=== PATIENT | female | born 1940 | race Caucasian/White ===

== ENCOUNTER 2021-02-01 08:40 | Outpatient (CLI) | payer MEDICARE, OTHER, SELFPAY ==
--- NOTE | ~2021-02-01 | MR_ITS ---
EXAMINATION: MR brain/brain stem wo con EXAM DATE: 02/01/2021 11:27 INDICATION: Seizure disorder, cervical disc disorder with myelopathy. TECHNIQUE: Magnetic resonance imaging (MRI) of the brain/brain stem obtained without contrast. Sagitt al T1, axial diffusion, gradient echo (T2*), T1, T2, FLAIR sequences obtained. Comparison is made to prior examination from 08/02/2014. FINDINGS: There are no areas of restricted diffusion to suggest acute infarction. There is no acute hemorrhage seen on the T2*, a hemosiderin sensitive sequence. No intraparenchymal brain mass lesion. There is moderate to severe periventricular and subcortical T2/FLAIR signal hyperintensity, nonspeci fic but probably related to small vessel ischemic disease (microangiopathy). There is moderate prom inence of the sulci and ventricles related to cerebral atrophy. There are no extra-axial collection s. Flow voids are seen in the cerebral arteries on the T2-weighted sequences consistent with their e xpected patency. Patient has had bilateral ocular lens surgery. Soft tissue is unremarkable. IMPRESSION: 1. No acute intracranial findings. 2. Chronic age related findings. Reviewed, dictated and finalized at location A.
--- NOTE | ~2021-02-01 | MR_ITS ---
EXAMINATION: MR cervical spine wo con EXAM DATE: 02/01/2021 11:27 INDICATION: Cervical disc disorder, myelopathy. TECHNIQUE: Multi-sequential, multiplanar MR images of the cervical spine were obtained without contra st. Axial T2, axial T2 MERGE sequence. Sagittal T1, T2, T2 fat saturation images also obtained. Th ere is no prior study for comparison. FINDINGS: There is cervical fusion C3-C6. There is C4 corpectomy. Congenitally narrow C2-3 disc spac e. 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 There is moderate disc disease at T3-4. The spinal cord signal intensity and intrinsic morphology is normal. Cervicomedullary junction is no rmal in appearance. Paraspinal soft tissue is unremarkable. Level by level evaluation: C2-C3: Congenitally partially fused. Uncovertebral joint arthropathy: None. Facet joint arthropathy: Fused. Neural foraminal stenosis: No stenosis. Central canal stenosis: No stenosis. C3-C4: This level is fused. Uncovertebral joint arthropathy: Mild bilateral. Facet joint arthropathy: Mild to moderate. Neural foraminal stenosis: No stenosis. Central canal stenosis: No stenosis. C4-C5: This level is fused. Uncovertebral joint arthropathy: Mild. Facet joint arthropathy: Mild to moderate left, mild right. Neural foraminal stenosis: No stenosis. Central canal stenosis: No stenosis. C5-C6: This level is fused. Uncovertebral joint arthropathy: Mild to moderate left, mild right. Facet joint arthropathy: Moderate to severe left, moderate right. Neural foraminal stenosis: No stenosis. Central canal stenosis: No stenosis. C6-C7: There is a minimal diffuse disc bulge. Uncovertebral joint arthropathy: Mild to moderate left, mild right. Facet joint arthropathy: Moderate left, mild right. Neural foraminal stenosis: Mild bilateral. Central canal stenosis: No stenosis. C7-T1: There is a mild diffuse disc bulge. Uncovertebral joint arthropathy: None. Facet joint arthropathy: Moderate left, mild right. Neural foraminal stenosis: Mild to moderate right. Central canal stenosis: No stenosis. IMPRESSION: 1. Surgical changes C3-6. 2. Moderate spondylosis. No central canal stenosis. Reviewed, dictated and finalized at location A.
--- NOTE | 2021-02-01 10:26 | WPDNEUROLOGY ---
Neurology EEG Report General Information Date of Study: 02/01/21 TEST eeg DIAGNOSIS memory loss CONDITION OF RECORDING awake ,drowsy and sleep EEG NUMBER [id number] CLINICAL HISTORY Patient does not know why she is having this particular test or why she sees the neurologist Her daughter takes care of all that. EEG DESCRIPTION Basic resting occipital frequency consists of medium voltage 8 to 9 hertz per second alpha admixed with minimal amount of very low-voltage 15 to 18 hertz per second beta. During drowsiness low-voltage beta activity seen diffusely admixed with waxing and waning posterior alpha rhythm .bihemispheric medium voltage 5 to 7 hertz per second theta is seen intermittently admixed with 2 to 3 hertz per second medium voltage delta activity. Non paroxysmal, nonfocal ,nonlateralizing. IMPRESSION Abnormal record due to the presence of bihemispheric theta and delta activity with no evidence of paroxysmal discharge. These abnormalities are consistent with diagnosis of organic or metabolic encephalopathy or else neuro degenerative process .
== END 2021-02-01 08:41 | disposition home or self-care (01) ==
PROVIDERS: PCP Family Medicine; Visit Provider Psychiatry & Neurology Neurology
DX: R56.9 Unspecified convulsions (principal); M50.01 Cervical disc disorder with myelopathy, high cervical region; M47.892 Other spondylosis, cervical region; R94.01 Abnormal electroencephalogram [EEG]
CPT/HCPCS: 70551; 72141; 95816

== ENCOUNTER 2022-11-01 08:40 | Emergency (ER) | payer MEDICARE, SELFPAY ==
[2022-11-01] VITALS (13 sets, daily range): BP systolic 129–145; BP diastolic 72–88; PULSE 77–98; RESP 12–28; TEMP 36.4; O2SAT 94–99
--- NOTE | ~2022-11-01 | CT_ITS ---
Noncontrast CT scan of the cervical spine Technique: Multiple contiguous axial [address] images of the cervical spine were obtained and rec onstructed in 2D sagittal and coronal planes on the acquisition scanner. Dose reduction technique was used on this scan by utilizing automated exposure control, adjustment of the mA and/or kV according to patient size. Clinical History: Pain Findings: No acute fracture identified. There is anterior fusion from C3 through C6, probable C4 erik ectomy. There is marked narrowing of the C2-C3 disc space. There are mild facet joint degenerative ch anges in the cervical spine, most pronounced in the left side at C5-C6. No definite spinal canal sten osis. No prevertebral soft tissue swelling. Impression: No fracture or subluxation of the cervical spine. Postoperative changes from C3 through C6, as detailed above. Mild degenerative changes, as detailed above. Reviewed, dictated and finalized at [facility]. 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 Postoperative changes from C3 through C6, as detailed above. Mild degenerative changes, as detailed above.
--- NOTE | ~2022-11-01 | CT_ITS ---
CT head without contrast Indication: Status post fall COMPARISON: 08/01/2014 Technique: Serial scans were obtained through the brain without the administration of contrast. Dose reduction technique was used on this scan by utilizing automated exposure control and iterative recon struction technique. The dose-length product (DLP) was 605.33 mGy-cm. Findings: There is no evidence of intracranial hemorrhage, mass lesion, or acute infarct. Chronic lac unar infarct noted in the right basal ganglia. Chronic left frontal lobe infarct noted. The ventricle s and subarachnoid spaces are dilated, consistent with mild atrophy. Low attenuation regions are see n within the periventricular white matter bilaterally, likely representing changes from chronic micro vascular ischemic disease. There is no evidence of edema, mass effect or midline shift. The visuali zed paranasal sinuses and mastoid air cells are clear. Impression: No intracranial hemorrhage, mass, or acute infarct. Chronic infarcts, as detailed above. Atrophy and chronic white matter changes, as above. Reviewed, dictated and finalized at location . 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 Chronic infarcts, as detailed above. Atrophy and chronic white matter changes, as above.
--- NOTE | 2022-11-01 09:09 | ECG_ITS ---
Measurements Intervals [place] Rate: 83 P: 51 [place]: 169 QRS: -62 QRSD: 153 T: 10 QT: 408 QTc: 480 Interpretive Statements SINUS RHYTHM POSSIBLE LEFT ATRIAL ENLARGEMENT [-0.1mV P-WAVE IN V1/V2] RIGHT BUNDLE BRANCH BLOCK [120+ ms QRS DURATION, UPRIGHT V1, 40+ ms S IN I/aVL/V4/V5/V6] LEFT ANTERIOR FASCICULAR BLOCK [QRS AXIS <= -45, QR IN I, RS IN II] POSSIBLE LEFT VENTRICULAR HYPERTROPHY [VOLTAGE CRITERIA PLUS LAE OR QRS WIDENING] POSSIBLE SEPTAL MYOCARDIAL INFARCTION , PROBABLY OLD [30 ms Q WAVE IN V1/V2] NO PREVIOUS ECG AVAILABLE FOR COMPARISON Electronically Signed On 11-01-2022 13:22:41 ELECTROENCEPHALOGRAPHIC TECHNICIAN by Arturo Drew M.D.
--- NOTE | 2022-11-01 09:09 | ED.HEATRA ---
HPI - Head Injury General Chief complaint: Head Injury Stated complaint: fall - head injury Time Seen by Provider: 11/01/22 08:53 Source: patient and family Mode of arrival: ambulatory Limitations: no limitations History of Present Illness HPI Narrative: Patient is an 82 y/o female who presents to the ED with c/o a fall with head injury. Patient reports she was leaning over to put on her shoes this morning when she fell forward. Family member at bedside reports patient hit her head against the corner of the dresser. Patient sustained a large scalp laceration to her left forehead. Denied LOC. She is not on any blood thinners. Tetanus status unknown. Patient denied feeling prodromal symptoms prior to the fall occurring. She does complain of mild dizziness and headache currently. Denies vision changes, nausea, vomiting, chest pain, difficulty breathing, back pain, neck pain. Patient lives with family and attends an adult daycare during the day. Related Data Allergies Allergy/AdvReac Type Severity Reaction Status Date / Time pentazocine Allergy Unknown Unknown Verified 11/01/22 12:08 PENTAZOCINE LACTATE Allergy Mild Unknown Uncoded 11/01/22 12:08 Review of Systems Review of Systems: CONSTITUTIONAL: Denies fever, chills, or sweats. EYES: Denies visual changes. CARDIOVASCULAR: Denies chest pain. RESPIRATORY: Denies dyspnea. GASTROINTESTINAL: Denies abdominal pain, nausea, vomiting. SKIN: Reports Laceration to left forehead. MUSCULOSKELETAL: Denies back pain, neck pain. NEUROLOGIC: Reports head injury, headache, dizziness. Denies LOC, numbness, or weakness. All systems reviewed & are unremarkable except as noted in HPI and below PMFSH Past Medical History Medical History (Updated 11/01/22 @ 11:33 by Cecilia Caldwell PA-C) Dementia GERD (gastroesophageal reflux disease) Hyperlipidemia Surgical History Surgical History (Updated 11/01/22 @ 09:24 by Cecilia Caldwell PA-C) No pertinent past surgical history Family History Family History (Updated 12/22/15 @ 09:22 by DOCTOR UNKNOWN) Father Family history of heart disease in male family member before age 55 Acute myocardial infarction Sibling Family history of heart disease in male family member before age 55 Social History Social History (Updated 11/01/22 @ 09:24 by Cecilia Caldwell PA-C) Alcohol intake: never Living arrangements: with family Exam Narrative: GENERAL: Well appearing, well-nourished, non-toxic, in no acute distress. HEAD: Normocephalic. Large L shaped flap scalp laceration to L upper lateral forehead. Bleeding controlled. EYES: PERRLA/EOMI. Conjunctiva clear. No pain with eye movements. ENT: MMs slightly dry. NECK: Supple. No adenopathy, no masses. No significant midline spinal tenderness. RESPIRATORY: Airway patent, respirations nonlabored. Clear to auscultation bilaterally, no rales, rhonchi, wheezing. CARDIOVASCULAR: Regular rate and rhythm without murmurs, rubs, or gallops. Peripheral pulses 2+ and equal bilaterally. ABDOMINAL: Soft, nontender, nondistended, no hepatosplenomegaly. Normoactive BS. MUSCULOSKELETAL: Moves all extremities. Strength/ROM intact without gross deformities. SKIN: Warm, dry, normal color. No rashes. NEURO: Alert. Speech clear. Cranial nerves II-XII grossly intact. Steady gait. No ataxic movements. Moves all extremities. Equal entry specialist strength bilaterally. No focal deficits. PSYCHIATRIC: Appropriate mood and affect. Normal interaction. Course Vital Signs Vital signs: Vital Signs Pulse Oximetry 95 11/01/22 08:48 Temperature 97.5 F L 11/01/22 08:52 Pulse Rate 89 11/01/22 12:08 Respiratory Rate 16 11/01/22 12:08 Blood Pressure 129/84 11/01/22 12:08 Pulse Oximetry 99 11/01/22 12:08 Procedures Laceration Laceration 1: Date: 11/01/22 Time: 11:00 Site: scalp and face (L forehead into scalp) Side (If applicable): left Size (cm): 10
[2022-11-01 09:51] LABS: Basophils Percent Auto 0.4 % (0.2-1.2); Eosinophils Percent Auto 0.4 % (0-4.4); Hemoglobin 12.8 g/dL (12.0-15.0); Immature Granulocyte Absolute 0.02 K/mm3 (0.00-0.031); Immature Granulocyte Percent A 0.3 % (0-0.5); Lymphocytes Absolute Auto 1.07 K/mm3 (0.9-3.2); Lymphocytes Percent Auto 14.9 % (18.3-44.2); Mean Corpuscular HGB Conc 32.8 g/dl (32-36); Mean Corpuscular Hemoglobin 29.2 pg (26-34); Mean Corpuscular Volume 88.8 fl (80-100); Mean Platelet Volume 10.6 fl (7.4-10.4); Monocytes Absolute Auto 0.7 K/mm3 (0.1-0.6); Monocytes Percent Auto 9.2 % (2.6-8.5); Neutrophils Absolute Auto 5.4 K/mm3 (1.3-6.7); Neutrophils Percent Auto 74.8 % (45.5-73.1); Platelet Count Result 175 k/mm3 (150-375); Red Blood Count 4.39 M/mm3 (4.2-5.4); Red Cell Distribution Width 13.2 % (11.5-14.5); White Blood Count 7.2 K/mm3 (4.5-10.0)
[2022-11-01 10:00] LABS: Alanine Aminotransferase 16 U/L (6-35); Albumin Level 3.5 g/dL (3.5-5.1); Alkaline Phosphatase 89 U/L (38-126); Anion Gap 5 mmol/L (8-16); Aspartate Amino Transferase 22 U/L (14-36); Bilirubin,Total 0.4 mg/dL (0.2-1.3); Blood Urea Nitrogen 13 mg/dL (7-17); Calcium 8.3 mg/dL (8.4-10.2); Carbon Dioxide 26 mmol/L (22-30); Chloride 101 mmol/L (98-107); Estimated CRCL calculation 48 ml/min; Estimated Glomerular Filt Rate > 60; Glucose 146 mg/dL (65-110); Potassium 3.7 mmol/L (3.4-5.0); Sodium 132 mmol/L (137-145)
[2022-11-01] MEDS: SODIUM CHLORIDE 0.9% IV 1,000 ML 999 ML IV CONT (10:22)
[2022-11-01] MEDS: TETANUS,DIPHTHERIA,AC PERTUSSIS ADULT (0.5 ML) BOOSTRIX IM (10:25)
[2022-11-01] MEDS: LIDOCAINE HCL 1% PF 30 ML VIAL 5 ML INFILTRATE (10:45)
--- NOTE | 2022-11-01 11:09 | PC.NURSE ---
Patient report given to TERRI Patel. All questions answered and care of patient transferred.
[2022-11-01] MEDS: MECLIZINE HCL 25 MG TABLET PO (12:08)
== END 2022-11-01 12:36 | disposition home or self-care (01) ==
PROVIDERS: Emergency Provider Physician Assistant; PCP Physician Assistant
DX: S01.01XA Laceration without foreign body of scalp, initial encounter (principal); Z23 Encounter for immunization; F03.90 Unspecified dementia, unspecified severity, without behavioral disturbance, psychotic disturbance, mood disturbance, and anxiety; E78.5 Hyperlipidemia, unspecified; K21.9 Gastro-esophageal reflux disease without esophagitis; W01.190A Fall on same level from slipping, tripping and stumbling with subsequent striking against furniture, initial encounter
CPT/HCPCS: 12004; 36415; 70450; 72125; 80053; 85025; 90471; 90715; 93005; 96360; 99284; A9270; J7030

== ENCOUNTER 2022-11-26 14:52 | Emergency (ER) | payer MEDICARE, SELFPAY ==
[2022-11-26 14:59] VITALS: BP 152/90; PULSE 102; RESP 15; TEMP 36.6; O2SAT 96
--- NOTE | 2022-11-26 15:08 | ECG_ITS ---
Measurements Intervals [place] Rate: 86 P: 75 [place]: 177 QRS: -58 QRSD: 133 T: 50 QT: 397 QTc: 477 Interpretive Statements SINUS RHYTHM VENTRICULAR PREMATURE COMPLEXES POSSIBLE LEFT ATRIAL ENLARGEMENT RIGHT BUNDLE BRANCH BLOCK LEFT ANTERIOR FASCICULAR BLOCK CANNOT RULE OUT SEPTAL INFARCT, AGE INDETERMINATE BASELINE ARTIFACT- I, II, AVR, V4-V6 ABNORMAL ECG COMPARED TO ECG 11/01/2022 09:14:35 NO SIGNIFICANT CHANGES Electronically Signed On 11-26-2022 15:46:16 FORENSIC CHEMIST by Ruddy Wilson D.O.
[2022-11-26 15:38] LABS: Basophils Absolute Auto 0.1 K/mm3 (0.0-0.1); Basophils Percent Auto 0.7 % (0.2-1.2); Eosinophils Percent Auto 0.4 % (0-4.4); Hematocrit 44.7 % (37.0-47.0); Hemoglobin 14.4 g/dL (12.0-15.0); Immature Granulocyte Absolute 0.02 K/mm3 (0.00-0.031); Immature Granulocyte Percent A 0.3 % (0-0.5); Lymphocytes Percent Auto 25.9 % (18.3-44.2); Mean Corpuscular HGB Conc 32.2 g/dl (32-36); Mean Corpuscular Hemoglobin 29.4 pg (26-34); Mean Corpuscular Volume 91.2 fl (80-100); Monocytes Absolute Auto 0.4 K/mm3 (0.1-0.6); Monocytes Percent Auto 6.2 % (2.6-8.5); Neutrophils Absolute Auto 4.6 K/mm3 (1.3-6.7); Neutrophils Percent Auto 66.5 % (45.5-73.1); Platelet Count Result 215 k/mm3 (150-375); Red Cell Distribution Width 13.4 % (11.5-14.5)
[2022-11-26 15:56] LABS: Alanine Aminotransferase 18 U/L (6-35); Albumin Level 3.8 g/dL (3.5-5.1); Alkaline Phosphatase 99 U/L (38-126); Anion Gap 7 mmol/L (8-16); Aspartate Amino Transferase 25 U/L (14-36); Bilirubin,Total 0.7 mg/dL (0.2-1.3); Blood Urea Nitrogen 20 mg/dL (7-17); Calcium 9.1 mg/dL (8.4-10.2); Carbon Dioxide 26 mmol/L (22-30); Chloride 107 mmol/L (98-107); Estimated CRCL calculation 38 ml/min; Estimated Glomerular Filt Rate 60; Glucose 139 mg/dL (65-110); Potassium 4.5 mmol/L (3.4-5.0); Sodium 140 mmol/L (137-145)
[2022-11-26 17:39] LABS: Appearance Urine Slightly Cloudy (Clear); Bilirubin Urine Negative (Negative); Blood Urine Trace-lysed (Negative); Color Urine Yellow (Yellow); Glucose Urine UA Negative (Negative); Ketones Urine Negative (Negative); Leukocyte Esterase Ur 3+ LEU/UL (Negative); Nitrate Urine Positive (Negative); Protein Urine Negative (Negative); Urobilinogen Urine 0.2 mg/dL (<2.0); pH Urine 5.5 (5.0-9.0)
[2022-11-26 17:47] LABS: Bacteria Urine 2+ /hpf; Mucus Urine Rare /lpf; Squamous Epithelial Cell Urine Rare /hpf (Few); WBC Urine >75 /hpf
[2022-11-26 17:48] LABS: Add Urine Microscopic? YES
[2022-11-26 18:24] VITALS: BP 159/75; PULSE 91; RESP 18; TEMP 36.7; O2SAT 98
[2022-11-26 18:25] VITALS: PULSE 90
[2022-11-26 19:47] VITALS: BP 139/78; PULSE 80; RESP 26; O2SAT 95
--- NOTE | 2022-11-26 20:02 | ED.WEAKNESS ---
HPI - Weakness General Chief complaint: Weakness Stated complaint: I don't feel good Time Seen by Provider: 11/26/22 18:31 History of Present Illness HPI Narrative: Patient is an 82-year-old female with a history of dementia presenting with general malaise. Patient states that for the last day she has just felt generally unwell. States that she felt nauseated earlier. Patient lives with her family and started complaining that she did not feel well today so they brought her in for evaluation. Patient denies any focal pain. No chest pain, headache, abdominal pain. No shortness of breath, cough, nasal congestion, vomiting, diarrhea, dysuria, hematuria, leg swelling. Related Data Allergies Allergy/AdvReac Type Severity Reaction Status Date / Time pentazocine Allergy Unknown Unknown Verified 11/26/22 18:26 PENTAZOCINE LACTATE Allergy Mild Unknown Uncoded 11/26/22 18:26 Review of Systems Review of Systems: All systems reviewed & are unremarkable except as noted in HPI and below PMFSH Past Medical History Medical History Dementia GERD (gastroesophageal reflux disease) Hyperlipidemia Surgical History Surgical History No pertinent past surgical history Family History Family History Father Family history of heart disease in male family member before age 55 Acute myocardial infarction Sibling Family history of heart disease in male family member before age 55 Social History Social History Alcohol intake: never Living arrangements: with family Exam Narrative: GENERAL: Well-appearing, well-nourished, and in no acute distress. HEAD: Normocephalic, atraumatic. EYES: PERRLA and EOMI. ENT: Nares clear, no rhinorrhea or epistaxis. Mucous membranes moist. NECK: Supple. CHEST: Clear to auscultation. No respiratory distress. HEART: Regular rate and rhythm. No murmur heard. Normal peripheral pulses. ABDOMEN: Soft, nontender, nondistended EXTREMITIES: Normal range of motion. No edema. SKIN: Warm, dry, no rash. NEURO: No focal deficits. Alert and oriented x2. PSYCH: Normal mood and affect. Course Vital Signs Vital signs: Vital Signs Temperature 97.9 F 11/26/22 14:59 Pulse Rate 102 H 11/26/22 14:59 Respiratory Rate 15 11/26/22 14:59 Blood Pressure 152/90 H 11/26/22 14:59 Pulse Oximetry 96 11/26/22 14:59 Oxygen Delivery Room Air 11/26/22 14:59 Temperature 98.0 F 11/26/22 18:24 Pulse Rate 80 11/26/22 19:47 Respiratory Rate 26 H 11/26/22 19:47 Blood Pressure 139/78 11/26/22 19:47 Pulse Oximetry 95 11/26/22 19:47 Oxygen Delivery Room Air 11/26/22 18:24 MDM - Weakness MDM Narrative Medical decision making narrative: Patient is an 82-year-old female presenting with general malaise. Patient is initially tachycardic, this has improved by the time I evaluated her. Exam is remarkable for the above. Work-up is remarkable for UTI. Blood work is normal. No leukocytosis. Normal renal function. Patient given a dose of Rocephin and some fluids. We will send in a prescription for Keflex. Advised PCP follow-up. Appropriate return precautions given. Discharged in stable condition. Differential Diagnosis Differential diagnosis: Likely sepsis, dehydration and other (UTI, pneumonia, URI) Lab Data 11/26/22 15:23 11/26/22 15:23 Labs: Lab Results 11/26/22 11/26/22 11/26/22 Range/Units 15:23 15:23 17:31 WBC 7.0 (4.5-10.0) K/mm3 RBC 4.90 (4.2-5.4) M/mm3 Hgb 14.4 (12.0-15.0) g/dL Hct 44.7 (37.0-47.0) % MCV 91.2 (80-100) fl MCH 29.4 (26-34) pg MCHC 32.2 (32-36) g/dl RDW 13.4 (11.5-14.5) % Plt Count 215 (150-375) k/mm3 MPV 11.0 H (7.4-10.4) fl Immature Gran % (Auto) 0.3
[2022-11-26] MEDS: SODIUM CHLORIDE 0.9% IV 1,000 ML 999 ML IV CONT (20:13)
[2022-11-26] MEDS: cefTRIAXone 2 GM in SODIUM CHLORIDE 0.9% IV 100 ML 200 ML IVPB (20:13)
== END 2022-11-26 23:09 | disposition home or self-care (01) ==
PROVIDERS: Emergency Medicine; Emergency Provider Emergency Medicine; PCP Physician Assistant
DX: N39.0 Urinary tract infection, site not specified (principal); F03.90 Unspecified dementia, unspecified severity, without behavioral disturbance, psychotic disturbance, mood disturbance, and anxiety; E78.5 Hyperlipidemia, unspecified; K21.9 Gastro-esophageal reflux disease without esophagitis
CPT/HCPCS: 36415; 80053; 81001; 85025; 87077; 87086; 87186; 93005; 96365; 99284; J0696; J7030

== ENCOUNTER 2023-06-09 21:49 | Inpatient (IN) | payer MEDICARE, MEDICAID, SELFPAY ==
[2023-06-09] VITALS (11 sets, daily range): BP systolic 154–179; BP diastolic 75–99; PULSE 70–91; RESP 14–22; TEMP 36.3; O2SAT 95–99
--- NOTE | ~2023-06-09 | CT_ITS ---
EXAMINATION: CT brain wo con DATE: 06/09/2023 22:34 INDICATION: Seizure versus transient ischemic episode with dizziness TECHNIQUE: Computed tomography (CT) of the head was performed without intravenous contrast. Sagittal and coronal reconstructions were performed. The mA was adjusted according to patient size. Iterative reconstruction technique was employed. The dose-length product was 605.33 mGy-cm. COMPARISON: head CT dated 11/01/2022 FINDINGS: Small region of encephalomalacia at the anterior left temporal and anterior inferior right frontal lo bes which could represent sequela of old infarcts or trauma. Relatively symmetric lacunar infarcts ve rsus more likely prominent perivascular spaces along the inferior aspect of the bilateral basal gangl ia. No acute intracranial hemorrhage, acute infarction or abnormal extra axial fluid collection. Ther e is moderate scattered white matter hypoattenuation consistent with chronic small vessel ischemic di sease. Symmetric prominence of the sulci consistent with moderate age-appropriate diffuse cerebral vo lume loss. Ventricles are normal and symmetric. No mass/mass effect. Changes of bilateral intraocular lens replacement. The orbits, paranasal sinuses and mastoid air cells are normal. Moderate leftward deviation of the nasal bones and anterior nasal septum likely sequela of old trauma. Intracranial tamy cified cerebral atherosclerosis is noted. IMPRESSION: 1. Stable appearance of regions of chronic encephalomalacia in the inferior left frontal and temporal lobes which could represent sequela of prior infarct or trauma. 2. Age-related changes including moderate diffuse volume loss and moderate scattered white matter hyp oattenuation consistent with chronic small vessel ischemic disease. 3. Relatively symmetric old lacunar infarcts versus more likely prominent perivascular space at the i nferior aspect of the bilateral basal ganglia. Reviewed, dictated and finalized at location A. IMPRESSION: 1. Stable appearance of regions of chronic encephalomalacia in the inferior lef t frontal and temporal lobes which could represent sequela of prior infarct or trauma. 2. Age-related changes including moderate diffuse volume loss and moderate scat tered white matter hypoattenuation consistent with chronic small vessel ischemi c disease. 3. Relatively symmetric old lacunar infarcts versus more likely prominent periv ascular space at the inferior aspect of the bilateral basal ganglia.
--- NOTE | ~2023-06-09 | MR_ITS ---
MRI of the brain Clinical History: Seizure Technique: Axial and sagittal T1-weighted images were acquired. These were followed by axial T2-weigh dariel, diffusion weighted, gradient, and FLAIR images. COMPARISON: 02/01/2021 Findings: There is no acute infarct, intracranial hemorrhage or mass lesion. Old left frontal lobe in farct present. Extensive chronic white matter changes are present throughout the periventricular whit e matter bilaterally. Ventricles and subarachnoid spaces are dilated. Orbits are unremarkable. Paranasal sinuses and mastoi d air cells are clear. Major intracranial flow voids are grossly intact. Sagittal midline structures are intact. IMPRESSION: No acute intracranial abnormality. Chronic left frontal lobe infarct. Extensive chronic microvascular ischemic change and mild generalized atrophy. Reviewed, dictated and finalized at location .
--- NOTE | ~2023-06-09 | XR_ITS ---
EXAMINATION: XR chest 1V DATE: 06/09/2023 22:34 INDICATION: Seizure versus stroke with lightheadedness TECHNIQUE: frontal view of the chest was obtained. COMPARISON: Chest radiograph dated 08/01/2014 FINDINGS: No focal airspace opacities, pulmonary edema, pleural effusion or pneumothorax. The cardiomediastinal silhouette is normal. Instrumented anterior spinal fusion with incompletely visualized instrumented fixation at the lower cervical spine. Additional partially visualized instrumented anterior and poste rior spinal fusion beginning at T12 and extending caudally in the nonvisualized lumbar spine. Resecti on of the distal right clavicle. IMPRESSION: 1. No acute cardiopulmonary disease. Reviewed, dictated and finalized at location A.
--- NOTE | ~2023-06-09 | CT_ITS ---
EXAMINATION: CTA BRAIN/CAROTID DATE: 06/10/2023 00:11 INDICATION: Possible transient ischemic episode with dizziness/lightheadedness. TECHNIQUE: Computed tomographic angiography (CTA) of the head and neck was performed with 100 mL Omni paque-350 intravenous contrast. Multiplanar reconstructions and maximum intensity projection 3D-recon structions of the carotid arteries and of the intracranial arteries were created by the technologist on a separate workstation. Automated exposure control and iterative reconstruction technique were emp loyed.The dose-length product was 970.92 mGy-cm. COMPARISON: None. FINDINGS: Carotid arteries: Aortic arch is normal in caliber with no hemodynamically significant stenosis or dissection. There is small amount of atherosclerotic plaque with 0% stenosis of the both the right and left carotid bulbs relative to normal distal artery lumen diameter (NASCET criteria). Mild emphysema and mild pleural p arenchymal scarring at the right apex. Instrumented C3-C6 anterior spinal fusion with likely C4 corpe ctomy with osseous strut graft. There is also fusion at the peripheral margins of the moderately narr owed C2-C3 disc space with fusion across the bilateral C2-C3 facet joints. There is additional develo ping fusion between many of the more caudal bilateral cervical facet joints. Cervical soft tissues ar e unremarkable. Intracranial arteries Vertebral arteries are codominant. There is a severe stenosis of the left vertebral artery of the fin al 5 mm of the artery before it confluence with the right vertebral and basilar arteries. Atheroscler otic calcific a cyst seen along the bilateral carotid bulbs without hemodynamic significant stenosis. There is no hemodynamically significant stenosis in the right vertebral, basilar and bilateral inter nal carotid arteries. There are no aneurysms identified. The bilateral A1 and right P1 segments are p atent. The left posterior cerebral artery vascular distribution is supplied from the left internal ca rotid artery via a patent left posterior commuting artery. Cerebral arterial arborization appears sym metric. No abnormally enhancing brain lesions. Chronic encephalomalacia in the anterior left temporal and anteroinferior left frontal lobes which could represent sequela of prior infarct or trauma. IMPRESSION: 1. Small amount of atherosclerotic plaque with 0% stenosis of the right and left carotid bulbs relati ve to normal distal artery lumen diameter (NASCET criteria). 2. 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 Reviewed, dictated and finalized at location A. IMPRESSION: 1. Small amount of atherosclerotic plaque with 0% stenosis of the right and lef t carotid bulbs relative to normal distal artery lumen diameter (NASCET criteri a). 2. Severe stenosis at the distalmost 5 mm of the intracranial left vertebral ar arden.
[2023-06-09 22:09] LABS: Basophils Percent Auto 0.6 % (0.2-1.2); Eosinophils Absolute Auto 0.1 K/mm3 (0-0.3); Eosinophils Percent Auto 1.4 % (0-4.4); Hematocrit 40.6 % (37.0-47.0); Hemoglobin 12.9 g/dL (12.0-15.0); Immature Granulocyte Absolute 0.01 K/mm3 (0.00-0.031); Immature Granulocyte Percent A 0.1 % (0-0.5); Lymphocytes Absolute Auto 2.37 K/mm3 (0.9-3.2); Lymphocytes Percent Auto 33.3 % (18.3-44.2); Mean Corpuscular HGB Conc 31.8 g/dl (32-36); Mean Corpuscular Hemoglobin 29.5 pg (26-34); Mean Corpuscular Volume 92.7 fl (80-100); Mean Platelet Volume 10.6 fl (7.4-10.4); Monocytes Absolute Auto 0.5 K/mm3 (0.1-0.6); Monocytes Percent Auto 6.9 % (2.6-8.5); Neutrophils Absolute Auto 4.1 K/mm3 (1.3-6.7); Neutrophils Percent Auto 57.7 % (45.5-73.1); Platelet Count Result 212 k/mm3 (150-375); Red Blood Count 4.38 M/mm3 (4.2-5.4); White Blood Count 7.1 K/mm3 (4.5-10.0)
--- NOTE | 2023-06-09 22:14 | ECG_ITS ---
Measurements Intervals [place] Rate: 76 P: 53 [place]: 169 QRS: -58 QRSD: 150 T: -13 QT: 418 QTc: 470 Interpretive Statements SINUS RHYTHM WITH FREQUENT VENTRICULAR PREMATURE COMPLEXES POSSIBLE LEFT ATRIAL ENLARGEMENT [-0.1mV P WAVE IN V1/V2] RIGHT BUNDLE BRANCH BLOCK [120+ ms QRS DURATION, UPRIGHT V1, 40+ ms S IN I/aVL/V4/V5/V6] LEFT ANTERIOR FASCICULAR BLOCK [QRS AXIS <= -45, QR IN I, RS IN II] POSSIBLE LEFT VENTRICULAR HYPERTROPHY [VOLTAGE CRITERIA PLUS LAE OR QRS WIDENING] COMPARED TO ECG 11/26/2022 15:28:50 NO SIGNIFICANT CHANGES Electronically Signed On 06-10-2023 8:32:39 CDT by Rukhsana Tovar M.D.
--- NOTE | 2023-06-09 22:24 | ED.SEIZURE ---
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 Patient's daughter states that the patient went to bed as normal, and woke up and came to the kitchen asking for cottage cheese. States at that point the patient was standing in the kitchen with her walker and her eyes glazed over. Patient's daughter and granddaughter at bedside states the patient was unresponsive for 5 minutes, she remained standing but was unable to respond. States she was moving her eyes around as if trying to communicate. States this lasted for about 5 minutes and then the patient was able to say that she was fine and sat down. The patient states she remembers waking up and walking to the kitchen and asking for cottage cheese and remembers saying she was fine, but does not remember the 5 minutes between. The patient is currently reporting lightheadedness. She denies chest pain, shortness of breath, abdominal pain, nausea or vomiting, urinary complaints, neck pain or back pain, headache, vision changes, focal numbness or weakness. Patient was hospitalized at [place] in for a CVA. She has no deficits per the family. <Gisel Claros PA-C - Last Filed: 06/09/23 23:47> Related Data Home Medications: Home Medications Medication Instructions Recorded Confirmed aspirin 325 mg tablet,delayed mg PO 06/09/23 release atorvastatin 40 mg tablet mg 06/09/23 cyanocobalamin (vitamin B-12) mcg 06/09/23 1,000 mcg tablet levetiracetam 750 mg tablet mg PO 06/09/23 metformin 500 mg tablet,extended mg PO 06/09/23 release 24 hr mirtazapine 15 mg tablet mg 06/09/23 sertraline 50 mg tablet mg 06/09/23 <Gisel Claros PA-C - Last Filed: 06/09/23 23:47> Allergies/Adverse Reactions: Allergies Allergy/AdvReac Type Severity Reaction Status Date / Time pentazocine Allergy Unknown Unknown Verified 06/09/23 22:52 PENTAZOCINE LACTATE Allergy Mild Unknown Uncoded 11/26/22 18:26 <Gisel Claros PA-C - Last Filed: 06/09/23 23:47> Review of Systems Review of Systems: CONSTITUTIONAL: Denies fever, chills EYES: Denies visual changes, redness, or discharge. ENT: Denies rhinorrhea, congestion, sore throat, or otalgia. CARDIOVASCULAR: Denies chest pain, palpitations, or edema. RESPIRATORY: Denies cough or dyspnea. GASTROINTESTINAL: Denies abdominal pain, nausea, vomiting, or diarrhea. GENITOURINARY: Denies dysuria or hematuria. SKIN: Denies rash or itching. MUSCULOSKELETAL: Denies back pain, joint pain, or myalgia. NEUROLOGIC: See HPI PSYCHIATRIC: Denies anxiety or depression. <Gisel Claros PA-C - Last Filed: 06/09/23 23:47> [facility] Past Medical History Medical History: Medical History Dementia GERD (gastroesophageal reflux disease) Hyperlipidemia <Gisel Claros PA-C - Last Filed: 06/09/23 23:47> Surgical History Surgical History: Surgical History No pertinent past surgical history <Gisel Claros PA-C - Last Filed: 06/09/23 23:47> Family History Family History: Family History Father Family history of heart disease in male family member before age 55 Acute myocardial infarction Sibling Family history of heart disease in male family member before age 55 <Gisel Claros PA-C - Last Filed:
[2023-06-09] MEDS: SODIUM CHLORIDE 0.9% IV 1,000 ML 500 ML IV CONT (22:44)
[2023-06-09] MEDS: levETIRAcetam 1000MG/NACL100ML 1,000 MG/100 ML BAG 400 MG IVPB (22:44)
[2023-06-09 23:02] LABS: Prothrombin Time 13.5 Seconds (11.1-14.7)
[2023-06-09 23:03] LABS: Partial Thromboplastin Time 42.2 SECONDS (22.3-36.8)
[2023-06-09 23:30] LABS: Troponin I < 0.012 ng/mL (0.000-0.034)
[2023-06-09 23:47] LABS: Alanine Aminotransferase 21 U/L (6-35); Albumin Level 3.6 g/dL (3.5-5.1); Alkaline Phosphatase 65 U/L (38-126); Anion Gap 4 mmol/L (8-16); Aspartate Amino Transferase 31 U/L (14-36); Bilirubin,Total 0.5 mg/dL (0.2-1.3); Blood Urea Nitrogen 26 mg/dL (7-17); Calcium 8.9 mg/dL (8.4-10.2); Carbon Dioxide 25 mmol/L (22-30); Chloride 105 mmol/L (98-107); Estimated CRCL calculation 42 ml/min; Estimated Glomerular Filt Rate > 60; Glucose 115 mg/dL (65-110); Potassium 4.2 mmol/L (3.4-5.0); Sodium 134 mmol/L (137-145)
--- NOTE | 2023-06-09 23:51 | PC.NURSE ---
Patient taken to CT via stretcher at this time.
[2023-06-10] VITALS (20 sets, daily range): BP systolic 122–154; BP diastolic 59–74; PULSE 66–89; RESP 13–20; TEMP 35.8–36.4; O2SAT 94–99; BMI 26.5
[2023-06-10 00:30] LABS: Appearance Urine Clear (Clear); Bacteria Urine 4+ /hpf; Bilirubin Urine Negative (Negative); Blood Urine Negative (Negative); Color Urine Yellow (Yellow); Glucose Urine UA Negative (Negative); Ketones Urine Negative (Negative); Leukocyte Esterase Ur 2+ LEU/UL (Negative); Nitrate Urine Positive (Negative); Non Pathogenic Casts 0-2; Protein Urine Negative (Negative); RBC Urine 0-2 /hpf (0-2); Specific Grav Ur 1.017 (1.001-1.035); Squamous Epithelial Cell Urine None seen /hpf (Few); Urobilinogen Urine 0.2 mg/dL (<2.0); pH Urine 5.5 (5.0-9.0)
[2023-06-10 01:04] LABS: Add Urine Microscopic? YES
--- NOTE | 2023-06-10 01:37 | PC.NURSE ---
This patient, Elysia Tyson, was admitted to [facility] Surg Room 312-01. Patient/family oriented to hospital policies and general routines including ID bracelet, bed and alarms, visiting hours, pain management, procedures, bathroom and other care routines, personal items, smoking policy, room service/diet, and visiting hours. Information on how to activate the Rapid Response Team has been discussed. Patient/Family are encouraged to report perceived risks to care and to ask questions if they do not understand what they are told or what they should do.
--- NOTE | 2023-06-10 05:42 | PM.IMHP ---
H&P: HPI History of Present Illness Date/Time: 06/10/23 02:50 Chief Complaint: Seizure Narrative: 82-year-old female with a past medical history of dementia, GERD, CVA and Lai absence seizures who presented to the ER after having a witnessed 5 minute seizure. The patient had come into the kitchen asking her daughter for some cottage cheese. She was standing in the kitchen with her walker when her eyes glazed over. Patient was reportedly unresponsive for about 5 minutes. She remained standing and was unable to respond. They stated that she was moving her eyes around as if she was trying to communicate. She then was able to state that she was okay and was able to sit down. She reported to the ER staff that she does not remember the 5 minute interval. At the time of my evaluation the patient stated that she is just feeling down and depressed and was in a fog I could not respond. The patient's daughter was not available at bedside at the time of my evaluation. Patient denies any lightheadedness or dizziness. She has not been having any urinary symptoms but does wear depends at home. According to the ER documentation the patient was hospitalized at [facility] in for CVA. The patient herself states that she has never had a stroke but imaging does demonstrate evidence of old stroke. Family reported the patient has no residual deficits from her stroke. The patient is alert oriented x3 at the time of my evaluation but it seems to be a poor historian regarding her medical history. She has no complaints at this time. Review of Systems Review of Systems: 12 systems were reviewed with pertinent positives and negatives per HPI. Except as documented in the HPI, all other systems were reviewed and are negative. [facility] Past Medical History Medical History (Updated 06/10/23 @ 06:16 by Pily Paz DO) Anxiety and depression CHF (congestive heart failure) CVA (cerebral vascular accident) Dementia GERD (gastroesophageal reflux disease) Hyperlipidemia Seizure Subdural hematoma Type 2 diabetes mellitus Vitamin D deficiency Surgical History Surgical History (Updated 06/10/23 @ 06:00 by Pily Paz DO) History of back surgery History of bladder suspension procedure History of bowel resection (~2000) History of bowel resection in 2020 with ileostomy and subsequent ileostomy takedown History of total hysterectomy with bilateral salpingo-oophorectomy (BSO) Hx of cholecystectomy Status post cataract extraction of both eyes with insertion of intraocular lens Status post tracheostomy Many years ago with subsequent removal Family History Family History Father Family history of heart disease in male family member before age 55 Acute myocardial infarction Sibling Family history of heart disease in male family member before age 55 Social History Social History (Updated 06/10/23 @ 06:03 by Pily Paz DO) Social History: Code status: Presumed to be full code but no records available for review Surrogate decision maker: Tyesha Cortez (daughter) Smoking packs per day: 3 Smoking cigarettes per day: 60.0 Years smoked: 25 Smoking pack-years: 75.00 Smoking status: Former smoker Alcohol intake: never Substance use: never Lack of Transportation: No Lack of Food: Never True Current Housing: I Have Housing Concerned About Future Housing: No Difficulty Paying Gas/Electric Bills: No Difficulty Paying for Meds: No Currently Unemployed: No Education: Associate Degree Difficulty w/ Childcare or Family Care: No Living arrangements: with family Additional living arrangements comments: She is . She lives with her daughter and granddaughter. She ambulates with a walker. She has 3 sons and 1 daughter. One of her sons . 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
[2023-06-10 07:53] LABS: Glucose Point of Care 124 mg/dl (65-105)
[2023-06-10] MEDS: SERTRALINE HCL 50 MG TABLET PO (08:11)
[2023-06-10] MEDS: metFORMIN HCL XR 500 MG TAB.SR.24H PO (08:12)
[2023-06-10] MEDS: ATORVASTATIN 40 MG TABLET PO (08:12)
[2023-06-10] MEDS: levETIRAcetam 250 MG TABLET 750 MG PO (08:12)
[2023-06-10] MEDS: ASPIRIN 325 MG ENTERIC TABLET PO (08:12)
--- NOTE | 2023-06-10 11:39 | WPDNEURCNPN ---
Assessment and Plan Assessment and plan (1) Observed seizure-like activity: Code(s): R56.9 - Unspecified convulsions Status: Acute (2) Dementia: Qualifiers: Dementia type: vascular dementia Dementia severity: mild Dementia behavioral or psychological symptom: with mood disturbance Qualified Code(s): F01.A3 - Vascular dementia, mild, with mood disturbance Code(s): F03.90 - Unspecified dementia, unspecified severity, without behavioral disturbance, psychotic disturbance, mood disturbance, and anxiety Status: Acute (3) Hyperlipidemia: Code(s): E78.5 - Hyperlipidemia, unspecified Status: Acute (4) Type 2 diabetes mellitus: Qualifiers: Diabetes mellitus terminal carman insulin use: without alf use Diabetes mellitus complication status: without complication Qualified Code(s): E11.9 - Type 2 diabetes mellitus without complications Code(s): E11.9 - Type 2 diabetes mellitus without complications Status: Acute Plan Elysia Tyson is a 82 year old female with a history of anxiety, depression, diabetes, dementia, possible prior stroke, and focal onset epilepsy presenting due to concerns for seizure. Episode described is concerning for possible seizure, which could have been provoked due to underlying UTI. Also considering stroke vs TIA. - Increase Keppra to 1000mg BID - Treat underlying UTI - Obtain MRI brain -- if positive for acute stroke, will need to do full stroke work-up including LDL, A!C, surface echocardiogram Consult date: 06/10/23 Reason for consult: Seizure HPI: Elysia Tyson is a 82 year old female with a history of anxiety, depression, diabetes, dementia, possible prior stroke, and epilepsy presenting due to concerns for seizure. Patient had a witnessed episode of unresponsiveness. Patient came into the kitchen asking daughter for cottage cheese. While standing in the kitchen with her walker, her eyes reported glazed over, jerking of the head (unclear which side) and patient was unresponsive for approximately 5 minutes. Patient remained standing but was unable to response. She was moving her eyes around as if she was trying to communicate . Afterwards she was wiped out per daughter. She does not have any recollection of the episode. She takes Keppra 750mg BID for history of absence seizures . She reports compliance with the Keppra. Level has been collected and is pending. She was taken to [place] ED, where she at her baseline with non focal exam. CT head showed hypodense area most pronounced in the left frontal region, but no evidence of bleed or any acute findings. Her UA this morning is concerning for UTI. Patient was reportedly hospitalized at [facility] for stroke. She initially went to get a routine MRI brain done in December, but was incidentally found to have acute strokes. Daughter reports that the only notable symptom at the time was mild left facial droop. She was admitted at [facility] for about 4-5 days. Patient does not have any residual symptoms from the stroke. She takes Aspirin and Lipitor 40mg daily. 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 Her last seizure was about ten years ago. Daughter describes the typical seizures to be similar to the one that happened yesterday, but she has some responsiveness during, and they are not as long. Review of Systems Constitutional: Constitutional: Denies chills, Denies fever(s) and Denies weight loss Eyes: Eyes: Denies diplopia and Denies loss of vision ENT: Denies dizziness, Denies hearing loss and Denies tinnitus Cardiovascular: Cardiovascular: Denies chest pain, Denies syncope and Denies dyspnea Respiratory: Respiratory: Denies cough, Denies dyspnea and Denies wheezing Gastrointestinal: Gastrointestinal: Denies abdominal pain, Denies change in bowel habits and Denies vomiting Genitourinary: Genitourinary: Reports urinary incontinence Comments: retention Mus
[2023-06-10 11:54] LABS: Glucose Point of Care 109 mg/dl (65-105)
[2023-06-10 16:46] LABS: Glucose Point of Care 148 mg/dl (65-105)
[2023-06-10] MEDS: MIRTAZAPINE 15 MG TABLET PO (20:05)
[2023-06-10] MEDS: levETIRAcetam 500 MG TABLET 1000 MG PO (20:05)
[2023-06-10 20:39] LABS: Glucose Point of Care 165 mg/dl (65-105)
[2023-06-11] VITALS: PULSE 73
[2023-06-11 04:00] VITALS: PULSE 69
[2023-06-11 06:00] VITALS: BP 146/67; PULSE 73; RESP 20; TEMP 35.7; O2SAT 97
--- NOTE | 2023-06-11 06:29 | PC.NURSE ---
pt to go to MRI this morning
[2023-06-11 07:43] LABS: Glucose Point of Care 125 mg/dl (65-105)
[2023-06-11 08:00] VITALS: PULSE 70
[2023-06-11] MEDS: ATORVASTATIN 40 MG TABLET PO (08:58)
[2023-06-11] MEDS: levETIRAcetam 500 MG TABLET 1000 MG PO (08:58)
[2023-06-11] MEDS: ASPIRIN 325 MG ENTERIC TABLET PO (08:58)
[2023-06-11] MEDS: metFORMIN HCL XR 500 MG TAB.SR.24H PO (08:58)
[2023-06-11] MEDS: SERTRALINE HCL 50 MG TABLET PO (08:59)
--- NOTE | 2023-06-11 10:42 | PM.IMPN ---
Progress Note: A&P Assessment and Plan (1) Observed seizure-like activity: Code(s): R56.9 - Unspecified convulsions Status: Acute Assessment and Plan: Neurology consulted. Keppra dose increased to 1000 mg p.o. b.i.d.. MRI brain normal (2) Type 2 diabetes mellitus: Qualifiers: Diabetes mellitus ferry terminal supervisor insulin use: without ferry terminal supervisor use Diabetes mellitus complication status: without complication Qualified Code(s): E11.9 - Type 2 diabetes mellitus without complications Code(s): E11.9 - Type 2 diabetes mellitus without complications Status: Acute Assessment and Plan: Patient is on metformin. Place patient on a consistent carbohydrate diet. Will add Accu-Cheks with meals and hypoglycemia protocol. (3) Hyperlipidemia: Code(s): E78.5 - Hyperlipidemia, unspecified Status: Acute (4) UTI (urinary tract infection): Code(s): N39.0 - Urinary tract infection, site not specified Status: Inactive Assessment and Plan: Continue IV Rocephin Subjective Date/time seen: 06/11/23 10:42 Interval history: Currently asymptomatic Review of Systems Review of Systems: All systems reviewed & are unremarkable except as noted in HPI and below Exam Const: General: cooperative and comfortable Orientation/consciousness: patient oriented x3 HENMT: Head: normal to inspection Mouth: Yes Normal oral and palatal mucosa present Eyes: General: appearance normal, both eyes and all related structures Resp: Effort & Inspection: normal respiratory effort Auscultation: clear to auscultation bilaterally Cardio: Rate: regular rate Rhythm: regular rhythm Heart sounds: S1 normal heart sound present and S2 normal heart sound present GI: GI Palp: Yes Soft to palpation Auscultation: normal bowel sounds Skin: General skin exam: normal color and no rashes or lesions noted Neuro: General: patient oriented x3, no focal motor deficits and CN's II-XI intact bilaterally Speech: normal speech Extrem: General: full ROM Psych: Appearance: grossly normal Objective Data Vital Signs Vital Signs: Vital Signs - 24 hr 06/10/23 12:00 06/10/23 14:00 06/10/23 16:00 Temperature 96.7 F L Pulse Rate 79 74 75 Respiratory Rate 18 Blood Pressure 127/61 Pulse Oximetry 95 Oxygen Delivery 06/10/23 20:00 06/10/23 22:00 08/07/23 00:00 Temperature 96.4 F L Pulse Rate 75 73 Respiratory Rate 16 Blood Pressure 154/74 H Pulse Oximetry 95 95 Oxygen Delivery Room Air 06/11/23 04:00 06/11/23 06:00 06/11/23 08:50 Temperature 96.3 F L Pulse Rate 69 73 Respiratory Rate 20 Blood Pressure 146/67 H Pulse Oximetry 97 Oxygen Delivery Room Air 06/11/23 08:00 Temperature Pulse Rate 70 Respiratory Rate Blood Pressure Pulse Oximetry Oxygen Delivery Intake/Output Intake/Output: Intake & Output 06/08/23 06/09/23 06/10/23 06/11/23 23:59 23:59 23:59 23:59 Intake Total 100 / 100 2985 / 2985 390 / 390 Output Total 3100 / 3100 950 / 950 Balance 100 / 100 -115 / -115 -560 / -560 Meds/Results Medications: Active Medications Generic Name Dose Route Start Last Admin Trade Name Freq PRN Reason Stop Dose Admin Aspirin 325 mg 06/10/23 09:00 06/11/23 08:58 Aspirin 325 Mg Enteric Tablet PO 325 mg DAILY MICHELE Administration Atorvastatin Calcium 40 mg 06/10/23 09:00 06/11/23 08:58 Atorvastatin 40 Mg Tablet PO 40 mg DAILY MICHELE Administration Dextrose 12.5 gm 06/10/23 05:58 Dextrose 50% 25 Gm/50 Ml Syringe IV PUSH PRN PRN Hypoglycemia Protocol Glucagon 1 mg 06/10/23 05:58 Glucagon For Inj 1 Mg Vial IM PRN PRN Hypoglycemia Protocol Glucose 15 gm 06/10/23 05:58 Glucose Oral Gel 15 Gm Of Glucse In 37.5 Gm Tube PO PRN PRN Hypoglycemia Protocol Dextrose 1,000 mls @ 100 mls/hr 06/10/23 05:58 Dextrose 5% 1,000 Ml IVPB PRN PRN Hypog
[2023-06-11 11:29] LABS: Glucose Point of Care 116 mg/dl (65-105)
[2023-06-11 12:00] VITALS: PULSE 89
--- NOTE | 2023-06-11 13:33 | P.DS_ITS ---
DS: Admitting Diagnosis Discharge Date 06/11/23 Admitting Diagnosis Seizure DS: Discharge Diagnosis Discharge Diagnosis (1) Observed seizure-like activity: Code(s): R56.9 - Unspecified convulsions Status: Acute (2) Type 2 diabetes mellitus: Qualifiers: Diabetes mellitus terminal operations manager insulin use: without terminal operations manager use Diabetes mellitus complication status: without complication Qualified Code(s): E11.9 - Type 2 diabetes mellitus without complications Code(s): E11.9 - Type 2 diabetes mellitus without complications Status: Acute DS: Summary Hospital Course Hospital Course: Elysia Tyson is a 82 year old female with a history of anxiety, depression, diabetes, dementia, possible prior stroke, and focal onset epilepsy presenting due to concerns for seizure. Episode described is concerning for possible seizure, which could have been provoked due to underlying UTI. Also considering stroke vs TIA. Neurology was consulted. they increased Keppra to 1000mg BID underlying UTI was treated with IV Rocephin and will be switched to p.o. Levaquin upon discharge. MRI brain negative for any acute findings. Patient has not had any seizure in the hospital. She is clinically stable and is being discharged home Time Spent with Patient Time attestation: Total time spent providing and/or coordinating discharge services: DS: Data Data Completed and Pending Labs on day of discharge: Labs from last 24 hours 06/11/23 06/11/23 06/10/23 11:20 07:38 20:11 POC Capillary Glucose 116 H 125 H 165 H 06/10/23 16:28 POC Capillary Glucose 148 H Preliminary micro results at discharge 06/10/23 00:12 Urine Culture - Preliminary Urine Clean Catch Escherichia Coli Discharge Plan Discharge Consulting providers: Graciela Herron Discharging Clinician: Jose Knight Anticipated Discharge Date/Time: 06/11/23 13:30 Patient Disposition: Home, Self-Care Activity: no preference Diet: heart healthy Patient Instructions: Antibiotic Form Stand Alone Forms: General Discharge Information Follow-up/Referrals: Laura,NUNU Fontaine [Primary Care Provider] - Discharge Medications: New levetiracetam [Keppra] 500 mg Tablet 1,000 mg PO Q12HR Qty: 60 0RF levofloxacin 500 mg tablet 500 mg PO DAILY Qty: 2 0RF Continued atorvastatin 40 mg tablet 40 mg PO DAILY mirtazapine 15 mg tablet 15 mg PO HS metformin 500 mg tablet extended release 24 hr 500 mg PO DAILY sertraline 50 mg tablet 50 mg PO DAILY Discontinued aspirin 325 mg tablet,delayed release (DR/EC) 325 mg PO DAILY levetiracetam 750 mg tablet 750 mg PO BID Date of admission: 06/11/23 13:20 Primary Care Provider: Laura,Payton Haney Admitting Provider: Pily Paz Attending physician on admission: Jose Knight Condition: Stable
[2023-06-11 14:00] VITALS: BP 160/98; PULSE 88; RESP 18; TEMP 35.7; O2SAT 98
[2023-06-12 17:47] LABS: Levetiracetam Keppra 44.5 mcg/mL (6.0-46.0)
== END 2023-06-11 15:20 | disposition home or self-care (01) | DRG 101 ==
LOC: ANHED 06-10 00:37 → ANH3MEDSUR 06-10 01:14
PROVIDERS: Physician Assistant; Admitting Provider Internal Medicine; Emergency Provider Emergency Medicine; PCP Physician Assistant; Visit Provider Hospitalist
DX: R56.9 Unspecified convulsions (principal); G40.109 Localization-related (focal) (partial) symptomatic epilepsy and epileptic syndromes with simple partial seizures, not intractable, without status epilepticus; N39.0 Urinary tract infection, site not specified; E11.9 Type 2 diabetes mellitus without complications; F03.90 Unspecified dementia, unspecified severity, without behavioral disturbance, psychotic disturbance, mood disturbance, and anxiety; F32.A Depression, unspecified; F41.9 Anxiety disorder, unspecified; K21.9 Gastro-esophageal reflux disease without esophagitis; E78.5 Hyperlipidemia, unspecified; Z98.42 Cataract extraction status, left eye; Z98.41 Cataract extraction status, right eye; Z96.1 Presence of intraocular lens; Z90.49 Acquired absence of other specified parts of digestive tract; Z90.710 Acquired absence of both cervix and uterus; Z90.722 Acquired absence of ovaries, bilateral; Z87.891 Personal history of nicotine dependence
CPT/HCPCS: 36415; 70450; 70496; 70498; 70551; 71045; 80053; 80177; 81001; 82948; 84484; 85025; 85610; 85730; 87077; 87086; 87186; 93005; 96361; 96365; 96366; 96367; 99285; A9270; G0378; J0696; J1953; J7030; Q9967

== ENCOUNTER 2023-08-12 09:23 | Emergency (ER) | payer MEDICARE, MEDICAID, SELFPAY ==
--- NOTE | ~2023-08-12 | XR_ITS ---
XR chest 2V DATE: 08/12/2023 09:54 INDICATION: Weakness TECHNIQUE: AP and lateral views COMPARISON: 06/09/2023 AP chest FINDINGS: Moderate elevation the right diaphragm likely due to eventration. Normal heart size. Aortic arch calcification, mild aortic unfolding. No hilar or mediastinal enlargement is evident. No pulmonary infiltrate or consolidation, pleural effusion or pulmonary vascular congestion or pneumo thorax. Status post anterior cervical spine surgical fusion. There is hardware from lumbar spine fusion. Resection lateral aspect of the right clavicle. Osteophytic change at both glenohumeral joints. Postoperative change of the left upper quadrant of the abdomen. IMPRESSION: Eventration of the right diaphragm No active cardiopulmonary disease Aortic atherosclerosis Cervical and lumbar spine fusion. Reviewed, dictated and finalized at location A.
[2023-08-12 09:26] VITALS: BP 165/69; PULSE 92; RESP 18; TEMP 36.4; O2SAT 95
--- NOTE | 2023-08-12 09:35 | ECG_ITS ---
Measurements Intervals [place] Rate: 77 P: 65 ND: 176 QRS: -57 QRSD: 162 T: -26 QT: 398 QTc: 453 Interpretive Statements SINUS RHYTHM POSSIBLE LEFT ATRIAL ENLARGEMENT [-0.1mV P WAVE IN V1/V2] RIGHT BUNDLE BRANCH BLOCK [120+ ms QRS DURATION, UPRIGHT V1, 40+ ms S IN I/aVL/V4/V5/V6] LEFT ANTERIOR FASCICULAR BLOCK [QRS AXIS <= -45, QR IN I, RS IN II] POSSIBLE LEFT VENTRICULAR HYPERTROPHY [VOLTAGE CRITERIA PLUS LAE OR QRS WIDENING] POSSIBLE SEPTAL MYOCARDIAL INFARCTION , OF INDETERMINATE AGE [30 ms Q WAVE IN V1/V2] ABNORMAL ECG COMPARED TO ECG 06/09/2023 22:45:16 NO SIGNIFICANT CHANGES Electronically Signed On 08-13-2023 9:22:32 CDT by Remberto Donnelly M.D.
[2023-08-12 10:01] VITALS: BP 163/76; PULSE 75; RESP 18; O2SAT 94
[2023-08-12 10:09] LABS: Basophils Percent Auto 0.5 % (0.2-1.2); Eosinophils Absolute Auto 0.1 K/mm3 (0-0.3); Eosinophils Percent Auto 1.1 % (0-4.4); Hematocrit 42.8 % (37.0-47.0); Hemoglobin 13.5 g/dL (12.0-15.0); Immature Granulocyte Absolute 0.01 K/mm3 (0.00-0.031); Immature Granulocyte Percent A 0.2 % (0-0.5); Lymphocytes Absolute Auto 1.48 K/mm3 (0.9-3.2); Mean Corpuscular HGB Conc 31.5 g/dl (32-36); Mean Corpuscular Hemoglobin 29.2 pg (26-34); Mean Corpuscular Volume 92.6 fl (80-100); Mean Platelet Volume 10.7 fl (7.4-10.4); Monocytes Absolute Auto 0.4 K/mm3 (0.1-0.6); Monocytes Percent Auto 6.5 % (2.6-8.5); Neutrophils Absolute Auto 4.2 K/mm3 (1.3-6.7); Neutrophils Percent Auto 67.7 % (45.5-73.1); Platelet Count Result 176 k/mm3 (150-375); Red Blood Count 4.62 M/mm3 (4.2-5.4); Red Cell Distribution Width 13.1 % (11.5-14.5); White Blood Count 6.2 K/mm3 (4.5-10.0)
[2023-08-12 10:22] LABS: Alanine Aminotransferase 29 U/L (6-35); Albumin Level 3.8 g/dL (3.5-5.1); Alkaline Phosphatase 76 U/L (38-126); Anion Gap 4 mmol/L (8-16); Aspartate Amino Transferase 34 U/L (14-36); Bilirubin,Total 0.7 mg/dL (0.2-1.3); Blood Urea Nitrogen 15 mg/dL (7-17); Calcium 9.1 mg/dL (8.4-10.2); Carbon Dioxide 28 mmol/L (22-30); Chloride 103 mmol/L (98-107); Estimated CRCL calculation 41 ml/min; Estimated Glomerular Filt Rate > 60; Glucose 140 mg/dL (65-110); Potassium 4.2 mmol/L (3.4-5.0); Sodium 135 mmol/L (137-145)
[2023-08-12 10:25] LABS: Appearance Urine Cloudy (Clear); Bilirubin Urine Negative (Negative); Blood Urine Trace-intact (Negative); Color Urine Yellow (Yellow); Glucose Urine UA Negative (Negative); Ketones Urine Negative (Negative); Leukocyte Esterase Ur 1+ LEU/UL (Negative); Nitrate Urine Positive (Negative); Protein Urine Negative (Negative); Urobilinogen Urine 0.2 mg/dL (<2.0); pH Urine 6.5 (5.0-9.0)
[2023-08-12 10:26] LABS: Bacteria Urine 4+ /hpf; Non Pathogenic Casts 0-2; Squamous Epithelial Cell Urine None seen /hpf (Few); WBC Urine >100 /hpf
[2023-08-12 10:33] LABS: Add Urine Microscopic? YES
[2023-08-12 11:31] VITALS: BP 144/82; PULSE 67; RESP 15; O2SAT 98
--- NOTE | 2023-08-12 11:50 | ED.WEAKNESS ---
HPI - Weakness General Chief complaint: Weakness Stated complaint: UTI Time Seen by Provider: 08/12/23 11:30 Source: patient and family Mode of arrival: ambulatory Limitations: no limitations History of Present Illness HPI Narrative: 83 years old white female came from home by private car with her daughter complaining of not feeling well for the last few days, poor appetite, long hours sleep over the last 48 hours. She denies any fever, chills, nausea, vomiting, diarrhea, constipation, abdominal pain or back pain. Related Data Home Medications Medication Instructions Recorded Confirmed atorvastatin 40 mg tablet 40 mg PO DAILY 06/09/23 06/10/23 metformin 500 mg tablet,extended 500 mg PO DAILY 06/09/23 06/10/23 release 24 hr mirtazapine 15 mg tablet 15 mg PO HS 06/09/23 06/10/23 sertraline 50 mg tablet 50 mg PO DAILY 06/09/23 06/10/23 Allergies Allergy/AdvReac Type Severity Reaction Status Date / Time pentazocine Allergy Unknown Unknown Verified 06/09/23 22:52 PENTAZOCINE LACTATE Allergy Mild Unknown Uncoded 11/26/22 18:26 Review of Systems Review of Systems: All systems reviewed & are unremarkable except as noted in HPI and below PMFSH Past Medical History Medical History Anxiety and depression CHF (congestive heart failure) CVA (cerebral vascular accident) Dementia GERD (gastroesophageal reflux disease) Hyperlipidemia Seizure Subdural hematoma Type 2 diabetes mellitus Vitamin D deficiency Surgical History Surgical History History of back surgery History of bladder suspension procedure History of bowel resection (~2000) History of bowel resection in 2020 with ileostomy and subsequent ileostomy takedown History of total hysterectomy with bilateral salpingo-oophorectomy (BSO) Hx of cholecystectomy Status post cataract extraction of both eyes with insertion of intraocular lens Status post tracheostomy Many years ago with subsequent removal Family History Family History Father Family history of heart disease in male family member before age 55 Acute myocardial infarction Sibling Family history of heart disease in male family member before age 55 Social History Social History Social History: Code status: Presumed to be full code but no records available for review Surrogate decision maker: Tyseha Cortez (daughter) Smoking packs per day: 3 Smoking cigarettes per day: 60.0 Years smoked: 25 Smoking pack-years: 75.00 Smoking status: Former smoker Alcohol intake: never Substance use: never Lack of Transportation: No Lack of Food: Never True Current Housing: I Have Housing Concerned About Future Housing: No Difficulty Paying Gas/Electric Bills: No Difficulty Paying for Meds: No Currently Unemployed: No Education: Associate Degree Difficulty w/ Childcare or Family Care: No Living arrangements: with family Additional living arrangements comments: She is . She lives with her daughter and granddaughter. She ambulates with a walker. She has 3 sons and 1 daughter. One of her sons . 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 Spiritual care concerns: No Exam Narrative: General appearance: Well-developed, well-nourished Skin: Normal color Head: Normocephalic, nontraumatic Eyes: Clear conjunctiva ENT: Oropharynx normal, ears normal, nose normal Neck: Supple, nontender Chest and respiratory: Airway patent, no respiratory distress, no accessory muscle use Heart: Regular rate/rhythm Abdomen: Soft, nontender, no organomegaly, quiet bowel sounds Vascular: Normal peripheral pulses, normal capillary refill. Musculoskeletal: Normal range of motion, nontender back Neurol
[2023-08-12] MEDS: SODIUM CHLORIDE 0.9% IV 1,000 ML 999 ML IV CONT (12:13)
[2023-08-12 12:30] VITALS: PULSE 73; RESP 18; O2SAT 98
[2023-08-12 13:46] VITALS: BP 151/70; PULSE 73; RESP 22; O2SAT 100
== END 2023-08-12 14:03 | disposition home or self-care (01) ==
PROVIDERS: Emergency Provider Emergency Medicine; PCP Physician Assistant
DX: N39.0 Urinary tract infection, site not specified (principal); F03.90 Unspecified dementia, unspecified severity, without behavioral disturbance, psychotic disturbance, mood disturbance, and anxiety; I50.9 Heart failure, unspecified; E78.5 Hyperlipidemia, unspecified; E11.9 Type 2 diabetes mellitus without complications; E55.9 Vitamin D deficiency, unspecified; K21.9 Gastro-esophageal reflux disease without esophagitis; F41.9 Anxiety disorder, unspecified; F32.A Depression, unspecified; Z87.891 Personal history of nicotine dependence; Z86.73 Personal history of transient ischemic attack (TIA), and cerebral infarction without residual deficits; Z90.49 Acquired absence of other specified parts of digestive tract; Z90.710 Acquired absence of both cervix and uterus; Z90.722 Acquired absence of ovaries, bilateral; Z90.79 Acquired absence of other genital organ(s); Z98.42 Cataract extraction status, left eye; Z98.41 Cataract extraction status, right eye; Z96.1 Presence of intraocular lens; Z79.84 Long term (current) use of oral hypoglycemic drugs; I45.10 Unspecified right bundle-branch block; R94.31 Abnormal electrocardiogram [ECG] [EKG]; I70.0 Atherosclerosis of aorta; Z98.1 Arthrodesis status
CPT/HCPCS: 36415; 71046; 80053; 81001; 85025; 87077; 87086; 87186; 93005; 96361; 96365; 99284; J0696; J7030

== ENCOUNTER 2024-08-11 05:36 | Emergency (ER) | payer MEDICARE, MEDICAID, SELFPAY ==
--- NOTE | ~2024-08-11 | CT_ITS ---
CT head without contrast Indication: Dementia, status post fall COMPARISON: 06/09/2023 Technique: Serial scans were obtained through the brain without the administration of contrast. Dose reduction technique was used on this scan by utilizing automated exposure control and iterative recon struction technique. The dose-length product (DLP) was 605.33 mGy-cm. Findings: There is no evidence of intracranial hemorrhage, mass lesion, or acute infarct. Left fronta l lobe infarct noted. The ventricles and subarachnoid spaces are dilated, consistent with moderate at rophy. Low attenuation regions are seen within the periventricular white matter bilaterally, likely representing changes from chronic microvascular ischemic disease. There is no evidence of edema, mas s effect or midline shift. The visualized paranasal sinuses and mastoid air cells are clear. Impression: No intracranial hemorrhage, mass, or acute infarct. Old left frontal lobe infarct. Atrophy and chronic white matter changes, as above. Reviewed, dictated and finalized at location . Impression: No intracranial hemorrhage, mass, or acute infarct. Old left frontal lobe infarct. Atrophy and chronic white matter changes, as above.
--- NOTE | ~2024-08-11 | CT_ITS ---
CT of the Abdomen and Pelvis: Indication: Abdominal pain Technique: 2.5 mm axial scans were obtained through the abdomen and pelvis following intravenous adm inistration of 100 cc of Omnipaque 350. Dose reduction technique was used on this scan by utilizing a utomated exposure control and iterative reconstruction technique. The dose-length product (DLP) was 4 04.01 mGy-cm. Findings: Scans through the lung bases are unremarkable. The liver, spleen, pancreas, and kidneys are within normal limits. Probable post cholecystectomy bernstein ge versus collapsed gallbladder with stones. There are small bilateral adrenal nodules measuring up t o 15 mm, indeterminate. There are atherosclerotic calcifications of the aorta. No lymphadenopathy. No bowel obstruction or bowel wall thickening. There is no evidence to suggest acute appendicitis. Images through the pelvis were performed. Urinary bladder unremarkable. No significant pelvic mass se en. No ascites. There is extensive spinal fixation hardware at the lower thoracic to lumbar spine. Impression: No acute abnormality seen. Bilateral germinal nodules measuring up to 15 mm, indeterminate. These are statistically most likely adenomas. Consider follow-up MR to attempt to confirm this diagnosis. Probable prior cholecystectomy versus contracted gallbladder with stones. Correlate with surgical his tory. Extensive postoperative change of the thoracolumbar spine. Reviewed, dictated and finalized at location M. Impression: No acute abnormality seen. Bilateral germinal nodules measuring up to 15 mm, indeterminate. These are stat istically most likely adenomas. Consider follow-up MR to attempt to confirm thi s diagnosis. Probable prior cholecystectomy versus contracted gallbladder with stones. Corre late with surgical history. Extensive postoperative change of the thoracolumbar spine.
--- NOTE | ~2024-08-11 | XR_ITS ---
AP and oblique views of the left ribs, and PA and lateral chest radiographs Clinical History: Pain Findings: No rib fracture is seen. Osseous alignment is anatomic. Lungs are clear, without focal cons olidation or pleural effusion. Cardiomediastinal contour is within normal limits. Soft tissues are un remarkable. Extensive spinal fixation hardware of the cervical spine and lower thoracic to lumbar spi ne. Impression: No rib fracture is seen. Clear lungs. Extensive spinal fixation hardware, as above. Reviewed, dictated and finalized at location M. Impression: No rib fracture is seen. Clear lungs. Extensive spinal fixation hardware, as above.
[2024-08-11 05:43] VITALS: BP 162/73; PULSE 85; RESP 20; TEMP 36.8; O2SAT 97
--- NOTE | 2024-08-11 06:28 | ECG_ITS ---
Test Date: 2024-08-11 06:41:08 Measurements Intervals [place] Rate: 72 P: 61 [place]: 184 QRS: -64 QRSD: 169 T: -29 QT: 435 QTc: 478 Interpretive Statements SINUS RHYTHM WITH FREQUENT VENTRICULAR PREMATURE COMPLEXES LEFT AXIS DEVIATION [QRS AXIS < -30] RIGHT BUNDLE BRANCH BLOCK [120+ ms QRS DURATION, UPRIGHT V1, 40+ ms S IN I/aVL/V4/V5/V6]+ ABNORMAL ECG No previous ECG available for comparison Electronically Signed On 08-11-2024 07:28:50 CDT by Alexis Esteban M.D.
--- NOTE | 2024-08-11 06:32 | ED.GENADULT ---
HPI - General Adult General Chief complaint: Back Pain/Injury <Jono Mcnulty MD - Last Filed: 08/11/24 06:35> Stated complaint: left side/flank/back/abd pain <Jono Mcnulty MD - Last Filed: 08/11/24 06:35> Time Seen by Provider: 08/11/24 06:21 <Jono Mcnulty MD - Last Filed: 08/11/24 06:35> History of Present Illness HPI narrative: Patient is a 4-year-old female who presents emergency department with chief complaint of left-sided chest/abdominal pain patient has prior history of dementia and apparently had a fall today the patient also has been a little weaker than normal in the family is concerned that she may have a UTI the patient reports that she has pain in the left side of her lower chest and in her upper abdomen <Jono Mcnulty MD - Last Filed: 08/11/24 06:35> Patient is a 84-year-old female who presents to the emergency department with chief complaint of left-sided chest/abdominal pain patient has prior history of dementia and apparently had a fall today the patient also has been a little weaker than normal in the family is concerned that she may have a UTI the patient reports that she has pain in the left side of her lower chest and in her upper abdomen <Osei Schaefer MD - Last Filed: 08/11/24 18:10> Related Data Home medications: Home Medications Medication Instructions Recorded Confirmed atorvastatin 40 mg tablet 40 mg PO DAILY 06/09/23 06/10/23 metformin 500 mg tablet,extended 500 mg PO DAILY 06/09/23 06/10/23 release 24 hr mirtazapine 15 mg tablet 15 mg PO HS 06/09/23 06/10/23 sertraline 50 mg tablet 50 mg PO DAILY 06/09/23 06/10/23 <Jono Mcnulty MD - Last Filed: 08/11/24 06:35> Allergies/adverse reactions: Allergies Allergy/AdvReac Type Severity Reaction Status Date / Time pentazocine Allergy Unknown Unknown Verified 08/11/24 05:47 PENTAZOCINE LACTATE Allergy Mild Unknown Uncoded 11/26/22 18:26 <Jono Mcnulty MD - Last Filed: 08/11/24 06:35> Review of Systems Review of Systems: A 10 system review of systems was completed on the patient and is negative except for what is stated in the HPI. Nursing and ancillary documentation was reviewed. <Jono Mcnulty MD - Last Filed: 08/11/24 06:35> [facility] Past Medical History Medical History: Medical History Anxiety and depression CHF (congestive heart failure) CVA (cerebral vascular accident) Dementia GERD (gastroesophageal reflux disease) Hyperlipidemia Seizure Subdural hematoma Type 2 diabetes mellitus Vitamin D deficiency <Jono Mcnulty MD - Last Filed: 08/11/24 06:35> Surgical History Surgical History: Surgical History History of back surgery History of bladder suspension procedure History of bowel resection (~2000) History of bowel resection in 2020 with ileostomy and subsequent ileostomy takedown History of total hysterectomy with bilateral salpingo-oophorectomy (BSO) Hx of cholecystectomy Status post cataract extraction of both eyes with insertion of intraocular lens Status post tracheostomy Many years ago with subsequent removal <Jono Mcnulty MD - Last Filed: 08/11/24 06:35> Family History Family History: Family History Father Family history of heart disease in male family member before age 55 Acute myocardial infarction Sibling Family history of heart disease in male family member before age 55 <Jono Mcnulty MD - Last Filed: 08/11/24 06:35> Social History Social History: Social History Social History: Code status: Presumed to be full code but no records available for review Surrogate decision maker: Tyesha Aguirre
[2024-08-11 06:46] LABS: Basophils Percent Auto 0.4 % (0.2-1.2); Eosinophils Absolute Auto 0.1 K/mm3 (0-0.3); Eosinophils Percent Auto 1.4 % (0-4.4); Immature Granulocyte Absolute 0.01 K/mm3 (0.00-0.031); Immature Granulocyte Percent A 0.1 % (0-0.5); Lymphocytes Absolute Auto 1.74 K/mm3 (0.9-3.2); Lymphocytes Percent Auto 21.6 % (18.3-44.2); Mean Corpuscular HGB Conc 32.5 g/dl (32-36); Mean Corpuscular Hemoglobin 30.2 pg (26-34); Mean Platelet Volume 10.4 fl (7.4-10.4); Monocytes Absolute Auto 0.6 K/mm3 (0.1-0.6); Monocytes Percent Auto 7.1 % (2.6-8.5); Neutrophils Absolute Auto 5.6 K/mm3 (1.3-6.7); Neutrophils Percent Auto 69.4 % (45.5-73.1); Platelet Count Result 176 k/mm3 (150-375); Red Cell Distribution Width 12.7 % (11.5-14.5); White Blood Count 8.1 K/mm3 (4.5-10.0)
[2024-08-11 06:56] LABS: Alanine Aminotransferase 14 U/L (6-35); Albumin Level 3.5 g/dL (3.5-5.1); Alkaline Phosphatase 75 U/L (38-126); Anion Gap 5 mmol/L (4-12); Aspartate Amino Transferase 21 U/L (14-36); Bilirubin,Total 0.3 mg/dL (0.2-1.3); Blood Urea Nitrogen 24 mg/dL (7-17); Carbon Dioxide 29 mmol/L (22-30); Chloride 105 mmol/L (98-107); Estimated CRCL calculation 33 ml/min; Estimated Glomerular Filt Rate 53; Glucose 150 mg/dL (65-110); Lipase 37 U/L (23-300); Potassium 4.1 mmol/L (3.4-5.0); Sodium 139 mmol/L (137-145)
[2024-08-11 06:58] LABS: Prothrombin Time 13.9 Seconds (11.1-14.7)
[2024-08-11 06:59] LABS: Partial Thromboplastin Time 36.9 Seconds (22.3-36.8)
[2024-08-11 07:07] LABS: Troponin I < 0.012 ng/mL (0.000-0.034)
--- NOTE | 2024-08-11 07:18 | PC.NURSE ---
Pt is currently in CT scan via stretcher, daughter at bedside - updated, discussed POC.
[2024-08-11 07:21] LABS: Influenza A QL RT-PCR Negative (Negative); Influenza B QL RT-PCR Negative (Negative); RSV RNA, RT-PCR Negative (Negative); SARS-CoV-2 RNA PCR Negative (Negative)
[2024-08-11 07:52] LABS: Add Urine Microscopic? YES; Appearance Urine Clear (Clear); Bacteria Urine 4+ /hpf; Bilirubin Urine Negative (Negative); Blood Urine Negative (Negative); Color Urine Yellow (Yellow); Glucose Urine UA Negative (Negative); Ketones Urine Negative (Negative); Leukocyte Esterase Ur 2+ LEU/UL (Negative); Nitrate Urine Positive (Negative); Non Pathogenic Casts 0-2; Protein Urine Negative (Negative); RBC Urine 0-2 /hpf (0-2); Specific Grav Ur 1.037 (1.001-1.035); Squamous Epithelial Cell Urine None Seen /hpf (Few); Urobilinogen Urine 0.2 mg/dL (<2.0); WBC Urine >100 /hpf (0-3); pH Urine 5.5 (5.0-9.0)
[2024-08-11 08:38] VITALS: BP 171/83; PULSE 84; RESP 17; TEMP 36.6; O2SAT 98
[2024-08-11] MEDS: traMADol HCL (*CRX) 50 MG TABLET 25 MG PO (09:39)
== END 2024-08-11 09:55 | disposition home or self-care (01) ==
PROVIDERS: Emergency Provider Emergency Medicine
DX: N39.0 Urinary tract infection, site not specified (principal); Z20.822 Contact with and (suspected) exposure to COVID-19; F03.90 Unspecified dementia, unspecified severity, without behavioral disturbance, psychotic disturbance, mood disturbance, and anxiety; I50.9 Heart failure, unspecified; E78.5 Hyperlipidemia, unspecified; E11.9 Type 2 diabetes mellitus without complications; E55.9 Vitamin D deficiency, unspecified; K21.9 Gastro-esophageal reflux disease without esophagitis; F41.9 Anxiety disorder, unspecified; F32.A Depression, unspecified; Z86.73 Personal history of transient ischemic attack (TIA), and cerebral infarction without residual deficits; Z87.891 Personal history of nicotine dependence; Z90.710 Acquired absence of both cervix and uterus; Z90.79 Acquired absence of other genital organ(s); Z90.722 Acquired absence of ovaries, bilateral; Z90.49 Acquired absence of other specified parts of digestive tract; Z96.1 Presence of intraocular lens; Z98.42 Cataract extraction status, left eye; Z98.41 Cataract extraction status, right eye; Z79.84 Long term (current) use of oral hypoglycemic drugs; Z79.899 Other long term (current) drug therapy; E27.9 Disorder of adrenal gland, unspecified; I45.10 Unspecified right bundle-branch block; I49.3 Ventricular premature depolarization
CPT/HCPCS: 36415; 70450; 71046; 71100; 74177; 80053; 81001; 83605; 83690; 83735; 84484; 85025; 85610; 85730; 87077; 87086; 87186; 87637; 93005; 96365; 99284; A9270; J0696; Q9967